=== PATIENT | male | born 1960 | race Caucasian/White ===

== ENCOUNTER 2017-09-29 16:40 | Emergency (ER) | payer OTHER ==
--- NOTE | 2017-09-29 18:05 | PDOC ---
History of Present Illness - General History Source: Patient Exam Limitations: No Limitations - History of Present Illness Initial Comments: 09/29/17 18:15 The patient is a 57 year old male, with a significant past medical history of an enlarged prostate and hemrrhoids, who presents to the emergency department with a new catheter placed 5 days ago. He reports he has had a catheter in place for the past 4 months. He states that he had the catheter placed due to an inability to urinate because of an enlarged prostate. During this time period he got an infection which he was prescribed antibiotics. He denies any blood in the urine bag and notes blood is only expelled when they change the catheter. He states that he has been having some mild abdominal pain, without radiation or modifying factors. He reports that he flushed the catheter yesterday successfully when it was blocked and twice today when it was blocked but was unsuccessful. The patient denies chest pain, shortness of breath, headache and dizziness. Denies fever, chills, nausea, vomit, diarrhea and constipation. Allergies: epinephrine, morphine, novocain, demerol Past surgical history: None reported Social history: No alcohol, tobacco or drug use reported <Kelechi Pham - Last Filed: 09/29/17 18:15> <Eugenia Gaffney - Last Filed: 09/29/17 18:35> - General Chief Complaint: Urinary Catheter Problem Stated Complaint: KIDNEY STONE PAIN Time Seen by Provider: 09/29/17 17:42 Past History <Kelechi Pham - Last Filed: 09/29/17 18:15> - Past Medical History GI Disorders: Yes (HEMORRHOIDS) Disorders: Yes (ENLARGED PROSTATE) - Surgical History Orthopedic Surgery: No - Suicide/Smoking/Psychosocial Hx Smoking History: Never smoked Hx Alcohol Use: No Drug/Substance Use Hx: No Substance Use Type: None <Eugenia Gaffney - Last Filed: 09/29/17 18:35> - Past Medical History Allergies/Adverse Reactions: Allergies Allergy/AdvReac Type Severity Reaction Status Date / Time epinephrine Allergy Verified 02/01/16 10:53 meperidine HCl [From Demerol] Allergy Verified 02/01/16 10:53 morphine Allergy Verified 02/01/16 10:53 procaine HCl [From Novocain] Allergy Verified 02/01/16 10:53 Home Medications: Ambulatory Orders Garlic 1 each PO DAILY 10/12/16 Ciprofloxacin [Cipro (Restricted To Id)] 250 mg PO BID 09/29/17 Review of Systems - Review of Systems Able to Perform ROS?: Yes Comments:: 09/29/17 18:15 GENERAL/CONSTITUTIONAL: No fever or chills. No weakness. HEAD, EYES, EARS, NOSE AND THROAT: No change in vision. No ear pain or discharge. No sore throat.- CARDIOVASCULAR: No chest pain or shortness of breath RESPIRATORY: No cough, wheezing, or hemoptysis. GASTROINTESTINAL: No nausea, vomiting, diarrhea or constipation. GENITOURINARY: (+) Blocked catheter. No dysuria, frequency, or change in urination. MUSCULOSKELETAL: No joint or muscle swelling or pain. No neck or back pain. SKIN: No rash NEUROLOGIC: No headache, vertigo, loss of consciousness, or change in strength/ sensation. ENDOCRINE: No increased thirst. No abnormal weight change HEMATOLOGIC/LYMPHATIC: No anemia, easy bleeding, or history of blood clots. ALLERGIC/IMMUNOLOGIC: No hives or skin allergy. <Kelechi Pham - Last Filed: 09/29/17 18:15> *Physical Exam - Physical Exam Comments: 09/29/17 18:15 GENERAL: Awake, alert, and fully oriented, in no acute distress HEAD: No signs of trauma, normocephalic, atraumatic EYES: PERRLA, EOMI, sclera anicteric, conjunctiva clear ENT: Auricles normal inspection, hearing grossly normal, nares patent, oropharynx clear without exudates. Moist mucosa NECK: Normal ROM, supple, no lymphadenopathy, JVD, or masses LUNGS: No distress, speaks full sentences, clear to auscultation bilaterally HEART: Regular rate and rhythm, normal S1 and S2, no murmurs, rubs or gallops, peripheral pulses normal and equal bilaterally. ABDOMEN: Soft, nontender, normoactive bowel sounds. No guarding, no rebound. No masses : (+) Urine bag in place with light yellow urine. No sign of blood. Urine also in tube. EXTREMITIES : Normal inspection, Normal range of motion, no edema. No clubbing or cyanosis. NEUROLOGICAL: Cranial nerves II through XII grossly intact. Normal speech, normal gait, no focal sensorimotor deficits SKIN: Warm, Dry, normal turgor, no rashes or lesions noted. <Kelechi Pham - Last Filed: 09/29/17 18:15> Medical Decision Making - Medical Decision Making 09/29/17 18:01 57-year-old male with a history of BPH and kidney stones has had an indwelling catheter since June of this year suddenly changed 5 days ago has had persistent problems with failure to drain of the Miranda. Was evaluated 2 days ago at an outside hospital with a CT scan that showed he had an 8 mm bladder stone. Today he presents to the ED for decreased drainage from the urine catheter he has tried to flush it at home and drink lots of water suddenly on arrival to the ED he feels that it started draining again wanted to make sure it was working properly. No fever no chills no nausea no vomiting no flank pain mild lower abdominal discomfort no hematuria On exam is awake alert no acute distress cardiac and lung exam is unremarkable abdomen is soft no lower abdominal tenderness or palpable bladder. No CVA tenderness for which catheter is in place with yellow clear urine in the bag and in the catheter next Catheter appears to be functioning properly will flush it more time here in the ED sure the patient knows how to flush it at home he is requesting not to have a change currently will DC home has surgery scheduled with his urologist for next week Sunday for in 2 days 09/29/17 18:34 Patient's Miranda catheter was flushed with increased drainage bladder scanner showed only 40 mL remainder in the bladder. Discharge home with follow-up with urologist in 2 days told to return for any persistent problems for catheter appears to be working well <Eugenia Gaffney - Last Filed: 09/29/17 18:35> *DC/Admit/Observation/Transfer - Attestations Scribe Attestion: 09/29/17 18:16 Documentation prepared by Kelechi Pham, acting as medical assistant ob gyn for Eugenia Gaffney MD <Kelechi Pham - Last Filed: 09/29/17 18:15> <Eugenia Gaffney - Last Filed: 09/29/17 18:35> Diagnosis at time of Disposition: Miranda catheter problem - Discharge Dispostion Disposition: HOME Condition at time of disposition: Improved - Referrals Referrals: Nguyễn Cronin [Primary Care Provider] - - Patient Instructions Printed Discharge Instructions: How to Care for Your Miranda Catheter -- Male Additional Instructions: 4 failure. Miranda catheter to drain try to flush again as he would have been instructed. Follow-up with your urologist in 2 days as directed. Return for any fevers chills, nausea, vomiting, or for failure of the catheter to drain for over 6 hours. Be sure to drink plenty of fluids return for any problems or concerns - Post Discharge Activity
[2017-09-29 18:19] VITALS: BP 144/93; PULSE 80; TEMP 98.3; BMI 22.4
== END 2017-09-29 18:51 | disposition home or self-care (01) ==
LOC: FER 16:40
DX: Z46.6 Encounter for fitting and adjustment of urinary device (principal)
CPT/HCPCS: 99282-25

== ENCOUNTER 2019-04-10 19:44 | Emergency (ER) | payer OTHER ==
[2019-04-10 19:57] VITALS: BP 120/84; PULSE 79; TEMP 98.4; BMI 53.1
[2019-04-10] MEDS ORDERED: BENZOIN/ALOE VERA/STORAX/TOLU 58 ML BOTTLE ONE (20:09)
[2019-04-10] MEDS ORDERED: DIPHTH,PERTUSS(ACELL),TET 0.5 ML DISP.SYRIN IM ONE ×2 (20:19→20:20)
--- NOTE | 2019-04-10 20:19 | PDOC ---
Documentation entered by Noah Iyer SCRIBE, acting as scribe for Ra Painter MD. Ra Painter MD: This documentation has been prepared by the Jaylon gilmore Collisia, SCRIBE, under my direction and personally reviewed by me in its entirety. I confirm that the documentation accurately reflects all work, treatment, procedures, and medical decision making performed by me. History of Present Illness - General Chief Complaint: Laceration Stated Complaint: LEFT HAND LACERATION Time Seen by Provider: 04/10/19 19:50 History Source: Patient Exam Limitations: No Limitations - History of Present Illness Initial Comments: 04/10/19 20:27 The patient is a 59 year old male with a significant past medical history of hemorrhoids and enlarged prostate who presents to the emergency department with a left hand injury earlier today. The patient states that he was at home when he tripped and fell onto his chainsaw at home. He states that the chainsaw was off but he acquired a subsequent hand laceration. The patient states that after impact her rinsed his had and came to the ED for further evaluation. The patient denies any current pain, numbness or tingling sensation to the affected area. He denies any fever, chills, nausea, vomiting, diarrhea, constipation or urinary symptoms. He denies any chest pain, shortness of breath, headache, dizziness, head injury, loc. The patient states that his last tetanus was more than 20 years ago. He denies any other complaints. PAST MEDICAL HISTORY: hemorrhoids and enlarged prostate PAST SURGICAL HISTORY: no significant history FAMILY HISTORY: no pertinent history SOCIAL HISTORY: Pt lives with family and is employed. MEDICATIONS: reviewed ALLERGIES: As per nursing notes General: No fevers or chills, no weakness, no weight loss HEENT: No change in vision. No sore throat,. No ear pain CardioVascular: No chest pain or shortness of breath Respiratory:No cough, or wheezing. Gastrointestinal: no nausea, vomiting, diarrhea or constipation, No rectal bleeding Genitourinary: No dysuria, hematuria, or frequency Musculoskeletal: (+)left hand laceration. No joint or muscle pain or swelling Neurologic: No headache, vertigo, dizziness or loss of consciousness Psychiatric: nor depression Skin: No rashes or easy bruising Endocrine: no increased thirst or abnormal weight change Allergic: no skin or latex allergy All other systems reviewed and normal GENERAL: The patient is awake, alert, and fully oriented, in no acute distress. HEAD: Normal with no signs of trauma. EYES: Pupils equal, round and reactive to light, extraocular movements intact, sclera anicteric, conjunctiva clear. EXTREMITIES: (+) left hand medical proximal palm has a 3cm lac and multiple superficial abrasion &Small 1cm superficial lac. No active bleed. Neurovascular distal intact. Normal range of motion, no edema. NEUROLOGICAL: Normal speech, normal gait. PSYCH: Normal mood, normal affect. SKIN: Warm, Dry, normal turgor, no rashes or lesions noted. Assessment and plan: This is a 59-year-old male who comes in complaining of a laceration to his hand. Patient lacerated his hand with a chain saw that he fell onto the chain saw was not running at the time. Patient is ALLERGIC to lidocaine so I'm unable to use any topical anesthesia on him. The laceration was not bleeding at the time I evaluated him so I was able to close it with Steri-Strips and Dermabond. Patient's tetanus was updated he was discharged and will follow-up with his primary care doctor Procedure note: Laceration repair Laceration cleaned and closed with Steri-Strips and Dermabond patient tolerated well 04/10/19 20:53 Past History - Past Medical History Allergies/Adverse Reactions: Allergies Allergy/AdvReac Type Severity Reaction Status Date / Time lidocaine Allergy Severe Verified 04/10/19 19:53 epinephrine Allergy Verified 02/01/16 10:53 meperidine HCl [From Demerol] Allergy Verified 02/01/16 10:53 morphine Allergy Verified 02/01/16 10:53 procaine HCl [From Novocain] Allergy Verified 02/01/16 10:53 Home Medications: Ambulatory Orders NK [No Known Home Medication] 04/10/19 COPD: No GI Disorders: Yes (HEMORRHOIDS) Disorders: Yes (ENLARGED PROSTATE) Kidney Stones: Yes - Surgical History Orthopedic Surgery: No - Suicide/Smoking/Psychosocial Hx Smoking History: Never smoked Hx Alcohol Use: No Drug/Substance Use Hx: No Substance Use Type: None *Physical Exam - Vital Signs Last Vital Signs Temp Pulse Resp BP Pulse Ox 98.4 F 79 16 120/84 97 04/10/19 19:47 04/10/19 19:47 04/10/19 19:47 04/10/19 19:47 04/10/19 19:47 *DC/Admit/Observation/Transfer Diagnosis at time of Disposition: Laceration of hand Qualifiers: Encounter type: initial encounter Foreign body presence: without foreign body Laterality: left Qualified Code(s): S61.412A - Laceration without foreign body of left hand, initial encounter - Discharge Dispostion Disposition: HOME Condition at time of disposition: Good - Referrals Referrals: Thomas Dan MD [Primary Care Provider] - - Patient Instructions Additional Instructions: Keep the laceration dry do not get it wet for at least 72 hours. The glue and Steri-Strips will come off on their own in about 4-5 days by then it should be healed. Do not put any petroleum based ointments, antibiotic ointments or gels on the glue as it will cause it to melt off. Return to the emergency department immediately with ANY new, persistent or worsening symptoms. Continue any medications as previously prescribed by your physician. You should follow up with your primary doctor as soon as possible regarding today's emergency department visit. . Please make sure your doctor reviews the results of your emergency evaluation. Thank you for coming to the Emergency Department today for your care. It was a pleasure to see you today. Please note that your evaluation is INCOMPLETE until you follow-up with your doctor. - Post Discharge Activity
== END 2019-04-10 20:24 | disposition home or self-care (01) ==
LOC: FER 19:44
PROC: 0HQGXZZ Repair Left Hand Skin, External Approach (ICD-10-PCS; principal; 2019-04-10)
PROC: 3E0234Z Introduction of Serum, Toxoid and Vaccine into Muscle, Percutaneous Approach (ICD-10-PCS; 2019-04-10)
DX: S61.412A Laceration without foreign body of left hand, initial encounter (principal); W26.8XXA Contact with other sharp object(s), not elsewhere classified, initial encounter; Y93.89 Activity, other specified; Y92.239 Unspecified place in hospital as the place of occurrence of the external cause
CPT/HCPCS: 90715; 99282-25